=== PATIENT | male | born 1945 | race Caucasian/White ===

== ENCOUNTER → 2022-06-05 14:21 | Outpatient (CLI) | payer MEDICARE, SELFPAY ==
--- NOTE | ~2022-06-05 | XR_ITS ---
XR lumbar spine 2-3V DATE: 06/05/2022 14:40 INDICATION: Right hip pain TECHNIQUE: AP, lateral, coned lateral lumbosacral views COMPARISON: None FINDINGS: There is osteopenia. There is prominent degenerative disc disease at T11-12 and T12-L1. Moderately severe degenerative disc disease and mild retrolisthesis at L1-2. Severe degenerative disc disease and retrolisthesis at L2-3. Mild degenerative disc disease at L3-4 with mild retrolisthesis, moderate degenerative disc disease a t L4-5. There is degenerative change at the apophyseal joints of the lower lumbar and lower cervical area wit h grade 1 anterolisthesis at L4-5. L5-S1 interspace is well preserved. Included lower thoracic and lumbar pedicles are intact. No fracture or bone destruction is evident. The sacroiliac joints are intact. Prominent abdominal aortic and common iliac arterial calcifications. IMPRESSION: Prominent degenerative disc disease of the lower thoracic and lumbar spine, with associat ed retrolisthesis at L1-L2 3 and L3-4 Reviewed, dictated and finalized at location A. IMPRESSION: Prominent degenerative disc disease of the lower thoracic and lumba r spine, with associated retrolisthesis at L1-L2 3 and L3-4
--- NOTE | ~2022-06-05 | XR_ITS ---
XR hip RT min 2V DATE: 06/05/2022 14:40 INDICATION: Right hip and low back pain. No injury. TECHNIQUE: AP and lateral views COMPARISON: None FINDINGS: No fracture or dislocation, avascular necrosis or bone destruction. Right hip joint space a ppears relatively preserved. Pubic symphysis and sacral iliac joints are intact. IMPRESSION: No significant abnormality of right hip Reviewed, dictated and finalized at location A.
== END ==
PROVIDERS: PCP Family Medicine; Visit Provider Physician Assistant
DX: M25.551 Pain in right hip (principal); M51.36 Other intervertebral disc degeneration, lumbar region; M51.34 Other intervertebral disc degeneration, thoracic region
CPT/HCPCS: 72100; 73502

== ENCOUNTER 2022-08-12 11:00 | Outpatient (RCR) | payer MEDICARE, SELFPAY ==
--- NOTE | 2022-07-14 13:09 | PTOPEVAL1 ---
Assessment and note entered by Jose A Gonsalez, PT Evaluation Information Assessment Status Evaluation Diagnosis Sciatica R side Onset gradual Subjective Information Patient reports that he has developed R hip pain which he states will be worked out after he warms up and moves around in the morning. Patient did X -rays of the hip and back and according to the patient the problem is from his back not the hip. Patient reports increased pain with prolonged sitting or inactivity Reported Pain Level Pain Score 4: Self Report Assessment PT Clinical Summary Puma is a 77 year old male coming into the clinic today with a diagnosis with R sided sciatica going down to his R hip. He reports he feels it after waking up in the morning or prolonged sitting. He also reports some issues with stairs and sit to stands. The patient does use topical CBD oil and over the counter supplements to help with the pain. Patient presents with weak core and hip abductors along with tight hamstrings and quads. Physical therapy could benefit the patient with strengthening of the core and glute med along with help stretching the hamstrings and quads along with education on body mechanics with stair climbing and sit to stands. If pain is increased will also work with modalities and manual therapy Plan of Care Interventions Electrical Stimulation,Gait Training,Hot Pack/Cold Pack,Manual Therapy,Mechanical Traction,Neuro Re- education,Patient/Caregiver Education,Therapeutic Activities,Therapeutic Exercise,Ultrasound PT Services Indicated Yes Treatment Frequency and 1x/wk for 4 weeks Duration These treatments will address the objective and functional deficits as defined above. The patient will be advanced safely and appropriately in order for the patient to progress towards his/her prior level of function. Additional exercises will be introduced and as well as a comprehensive home exercise program upon discharge, if needed, ?to ensure carryover of functional gains achieved in the clinic. This treatment plan has been reviewed and agreement upon by the patient.
--- NOTE | 2022-07-29 16:08 | PCPTNOTE ---
Patient called & cancelled scheduled appointment this date due to time was messed up from daylight saving time
--- NOTE | 2022-08-12 14:39 | PTOPDC ---
Assessment and note entered by Jose A Gonsalez, PT Evaluation Information Assessment Status Discharge Diagnosis Sciatica R side Onset gradual Subjective Information The patient reports he is feeling much better. He is sore today, but her reports that is his own fault as he pressure washed 2 sides of his house. He reports he does his exercises though not everyday and can really feel a difference when he does do his stretches. He reports he does not always need to use his CBD oil or BC over the counter pain medication. Patient feels okay with discharge from therapy. Reported Pain Level Pain Score 3: Self Report Additional Pain Score Comments had no pain before pressure washing his home. Assessment PT Clinical Summary Puma has been coming to physical therapy since July 14 for 4 appts. He has met all goals besides his hamstring length. Patient reports he knows what he needs to do with his exercises to stay loose and be in better alignment. He knows that when he overdoes it he will need to use his CBD topical oil and his over the counter pain meds , but it is manageable and much better day to day on average. Plan of Care PT Services Indicated No Treatment Frequency and discharged from skilled physical therapy Duration
== END 2022-08-13 10:43 | disposition home or self-care (01) ==
LOC: ANHPT 11:00
PROVIDERS: PCP Family Medicine; Visit Provider Family Medicine
DX: M54.30 Sciatica, unspecified side (principal)
CPT/HCPCS: 97110; 97140; 97161; 97530; 99199

== ENCOUNTER 2022-09-18 08:25 | Outpatient (CLI) | payer MEDICARE, SELFPAY ==
--- NOTE | ~2022-09-18 | US_ITS ---
Ultrasound of the Abdominal Aorta INDICATION: Cardiovascular disorder, aortic aneurysm TECHNIQUE: Grayscale, color Doppler, and pulsed Doppler images of the aorta and common iliac arteries were obtained. COMPARISON: None. FINDINGS: Maximum vascular dimensions are as follows: Proximal aorta: 2.8 cm Mid aorta: 2.2 cm Distal aorta: 2.3 cm Right common iliac artery: 1.5 cm Left common iliac artery: 1.4 cm There is no evidence of abdominal aortic aneurysm. IMPRESSION: No abdominal aortic aneurysm. Reviewed, dictated and finalized at location M. ETICS COUNTER MANAGER
== END 2022-09-18 08:26 | disposition home or self-care (01) ==
PROVIDERS: PCP Family Medicine; Visit Provider Family Medicine
DX: Z13.6 Encounter for screening for cardiovascular disorders (principal)
CPT/HCPCS: 76706

== ENCOUNTER 2023-06-09 10:34 | Emergency (ER) | payer MEDICARE, SELFPAY ==
--- NOTE | ~2023-06-09 | XR_ITS ---
AP and lateral views of the right tibia/fibula Clinical History: Injury Findings: No acute fracture or dislocation is seen. Osseous alignment is anatomic. Joint spaces are p reserved without significant erosive or degenerative change. Mild diffuse subcutaneous soft tissue ed jignesh noted. Impression: Mild diffuse subcutaneous soft tissue edema, nonspecific. No fracture or dislocation. Reviewed, dictated and finalized at location . Impression: Mild diffuse subcutaneous soft tissue edema, nonspecific. No fracture or dislocation.
[2023-06-09 10:50] VITALS: BP 139/72; PULSE 70; RESP 16; TEMP 36.9; O2SAT 98
[2023-06-09] MEDS: TETANUS,DIPHTHERIA,AC PERTUSSIS ADULT (0.5 ML) BOOSTRIX IM (12:38)
--- NOTE | 2023-06-09 13:12 | ED.LOWEXIN ---
HPI - Extremity Injury (Lower) General Chief Complaint: Extremity Injury, Lower Stated Complaint: leg injury Time Seen by Provider: 06/09/23 12:05 Source: patient and RN notes reviewed Mode of arrival: ambulatory Limitations: no limitations History of Present Illness HPI Narrative: This is an 78 year old male who presents for evaluation of right lower extremity wound. He states that on Thursday he accidentally slipped hitting right anterior lower leg on a rock. He has had a wound to his leg that he has been treating. HE reports he started noticing bruising around his wound on Thursday and Thursday. He reports he noticed bruising moved down to his toes so he called his PCP. His PCP was was unavailable to he came to ER for wound evaluation and to get tetanus shot. He denies having knee pain or injury. He denies ankle or foot pain. He has minimal pain around his wound. He denies dizziness, chest pain, shortness of breath. He takes eliquis for history of afib. He denies hitting his head. He denies calf pain. Related Data Home Medications Medication Instructions Recorded Confirmed cholecalciferol (vitamin D3) 25 1,000 unit PO DAILY 08/25/19 03/03/23 mcg (1,000 unit) capsule vitamin E (dl, acetate) 180 mg 400 unit PO DAILY 08/25/19 03/03/23 (400 unit) capsule Allergies Allergy/AdvReac Type Severity Reaction Status Date / Time No Known Allergies Allergy Verified 03/03/23 09:56 Review of Systems Constitutional: Constitutional: Denies weakness Cardiovascular: Cardiovascular: Denies syncope, Denies rapid heart rate, Denies irregular heart rhythm, Reports leg edema and Denies dyspnea Respiratory: Respiratory: Denies chest congestion, Denies hemoptysis, Denies excessive phlegm production and Denies dyspnea Gastrointestinal: Gastrointestinal: Denies abdominal pain, Denies hematochezia, Denies diarrhea and Denies vomiting Genitourinary: Genitourinary: Denies hematuria, Denies dysuria, Denies penile discharge and Denies testicular pain Musculoskeletal: Musculoskeletal: Denies joint swelling, Denies loss of height and Denies muscle weakness Neurologic: Denies syncope, Denies focal weakness and Denies weakness Hematologic/Lymphatic: Hematologic/Lymphatic: Denies easy bruising PMFSH Past Medical History Medical History Afib CKD (chronic kidney disease), stage III Nummular eczema Surgical History Surgical History H/O cardiac radiofrequency ablation Family History Family History Father Cerebrovascular accident Mother Family history of malignant neoplasm of breast in first degree relative Social History Social History Smoking status: Never smoker Second hand tobacco smoke exposure: No Alcohol intake: current Drinks per week: 8 Substance use: never Substance use type: does not use Living arrangements: with family Occupation/Education: retired Gender identity (if verbalized by the patient): Male Sexual Orientation (if Verbalized by the Patient): Straight or Heterosexual Spiritual care concerns: No Exam Const: General: no acute distress and alert Nutritional Appearance: well nourished Orientation/consciousness: patient oriented x3 HENMT: Head: normal to inspection Face and sinus: normal facial exam Eyes: Pupils: Equal, round and reactive pupils present EOM: EOMs intact bilaterally Chest: Chest palpation & inspection: normal inspection of the chest Resp: Effort & Inspection: normal respiratory effort Skin: Wounds: wounds noted (right anterior lower leg with small puncture wounds, no surrounding erythem) Other: no purulence; there is ecchymosis to ankle and toes, no tenderness Neuro: General: patient oriented x3, moves all extremities and CN's II-XI intact
== END 2023-06-09 13:55 | disposition home or self-care (01) ==
PROVIDERS: Emergency Provider General Practice; PCP Family Medicine
DX: S80.11XA Contusion of right lower leg, initial encounter (principal); S81.801A Unspecified open wound, right lower leg, initial encounter; I48.91 Unspecified atrial fibrillation; N18.30 Chronic kidney disease, stage 3 unspecified; Z23 Encounter for immunization; W18.09XA Striking against other object with subsequent fall, initial encounter
CPT/HCPCS: 73590; 90471; 90715; 99283

== ENCOUNTER 2023-09-08 10:32 | Outpatient (CLI) | payer MEDICARE, SELFPAY ==
--- NOTE | ~2023-09-08 | XR_ITS ---
EXAMINATION: XR tibia fibula RT 2V INDICATION: Two views of the right tibia and fibula are obtained on four radiographs. TECHNIQUE: Right leg pain COMPARISON: 06/08/2023 FINDINGS: Bone alignment is normal. There is no fracture. No acute soft tissue abnormality is identif ied. Calcified atherosclerosis is noted. There is mild osteoarthritis of the knee. IMPRESSION: 1. No acute osseous abnormality. Reviewed, dictated and finalized at location L. ET ADJUSTER
== END 2023-09-08 10:33 | disposition home or self-care (01) ==
PROVIDERS: PCP Family Medicine; Visit Provider Family Medicine
DX: M79.604 Pain in right leg (principal)
CPT/HCPCS: 73590

== ENCOUNTER 2024-03-22 13:40 | Outpatient (CLI) | payer MEDICARE, SELFPAY ==
--- NOTE | ~2024-03-22 | CT_ITS ---
EXAMINATION: CT abdomen pelvis wo con DATE: 03/22/2024 14:09 INDICATION: Stage III chronic kidney disease. TECHNIQUE: Computed tomography (CT) of the abdomen and pelvis was performed without intravenous contr ast. Automated exposure control and iterative reconstruction technique were employed. The dose-length product was 1132.51 mGy-cm. COMPARISON: None FINDINGS: Mild scattered discoid atelectasis in the bilateral lower lungs. Heart size is normal. Atheroscleroti c coronary artery calcifications. Aortic valve calcification. No pericardial or pleural effusion. Rafi dder, gallbladder, spleen, pancreas, bilateral adrenal glands and right kidney are normal. At the lef t kidney there are 2.8 and 1.7 simple fluid attenuation renal cysts and a 5 mm hyperdense proteinaceo us/hemorrhagic cyst. There is an additional 1.5 cm soft tissue density exophytic lesion at the lower pole of the left kidney most likely proteinaceous/hemorrhagic cyst although solid neoplasm cannot be excluded. Bladder is normal. Moderate-sized fat-containing left inguinal hernia. Bowels including the appendix are normal. There a few small smooth nodular soft tissue densities at the posterior aspect of the right perirenal fat and along the anterior margin of the posterior right 10th and 11th ribs, t he largest measuring 2.0 x 1.9 x 1.2 cm. It is unclear this are retroperitoneal or pleural-based at t he posterior sulcus. No free intraperitoneal gas or fluid. No pathologically enlarged abdominal or pe lvic lymphadenopathy. Severe lumbar and moderate to severe lower thoracic spondylosis. 4 mm anterolis thesis L4 on L5. IMPRESSION: 1. Simple and hyperdense prone/hemorrhagic cyst at the left kidney with 1.5 cm indeterminate exophyti c lesion at the lower pole which could represent additional tiny/hemorrhagic cyst or solid renal cell carcinoma. If the patient would be a surgical candidate in the setting of renal cell carcinoma would recommend further evaluation with pre and postcontrast MRI or CT. 2. A few small lobular soft tissue densities the largest measuring 2.0 x 1.9 x 1.2 cm either along th e posterior right perirenal fat or pleural-based at the right posterior sulcus. Differential would in clude malignancy including pleural-based metastases, vascular malformations or benign neoplasm such a s schwannoma or peripheral nerve sheath tumors. Correlate for clinical history of prior right thoraci c malignancy and consider further evaluation with pre and postcontrast MRI. Comparison with any prior outside imaging if available would also be very helpful. Reviewed, dictated and finalized at location B. IMPRESSION: 1. Simple and hyperdense prone/hemorrhagic cyst at the left kidney with 1.5 cm indeterminate exophytic lesion at the lower pole which could represent addition al tiny/hemorrhagic cyst or solid renal cell carcinoma. If the patient would be a surgical candidate in the setting of renal cell carcinoma would recommend fu rther evaluation with pre and postcontrast MRI or CT. 2. A few small lobular soft tissue densities the largest measuring 2.0 x 1.9 x 1.2 cm either along the posterior right perirenal fat or pleural-based at the r ight posterior sulcus. Differential would include malignancy including pleural- based metastases, vascular malformations or benign neoplasm such as schwannoma or peripheral nerve sheath tumors. Correlate for clinical history of prior righ t thoracic malignancy and consider further evaluation with pre and postcontrast MRI. Comparison with any prior outside imaging if available would also be very helpful.
== END 2024-03-22 13:41 | disposition home or self-care (01) ==
PROVIDERS: PCP Family Medicine; Visit Provider Family Medicine
DX: I12.9 Hypertensive chronic kidney disease with stage 1 through stage 4 chronic kidney disease, or unspecified chronic kidney disease (principal); N18.30 Chronic kidney disease, stage 3 unspecified; N13.9 Obstructive and reflux uropathy, unspecified
CPT/HCPCS: 74176

== ENCOUNTER 2024-04-12 14:29 | Outpatient (CLI) | payer MEDICARE, SELFPAY ==
--- NOTE | ~2024-04-12 | MR_ITS ---
EXAMINATION: MR abdomen wo/w con DATE: 04/12/2024 15:31 INDICATION: Stage III chronic kidney disease. TECHNIQUE: Magnetic resonance imaging (MRI) of the abdomen was performed without and with 20 mL Multi essence intravenous contrast. Sequences included coronal T2-weighted SS-FSE, coronal and axial FS 2D-F IESTA, axial STIR FSE, axial T2-weighted SS-FSE, axial T2-weighted FS SS-FSE, axial diffusion-weighte d SE, axial dual-echo T1-weighted FSPGR, and axial and coronal T1-weighted LAVA. Postcontrast axial T 1-weighted LAVA images were obtained in a time course. Postcontrast coronal T1-weighted LAVA images w ere obtained. COMPARISON: CT dated 03/22/2024 FINDINGS: Heart size is normal. No pericardial or pleural effusion. Dependently layering sludge in the otherwis e normal gallbladder. Liver, spleen, pancreas and bilateral adrenal glands are normal. There are few bilateral T2 hyperintense nonenhancing renal cysts the largest on the left measuring 2.8 cm. There ar e also couple T1 hyperintense, T2 hypointense nonenhancing complex proteinaceous/hemorrhagic cysts in the left kidney corresponding to the lesions of concern on prior CT. No enhancing solid renal neopla sms. Again seen are couple small nodular lesions along the fascial plane surrounding the right perire nal fat the largest measuring 1.9 x 1.3 cm which are T2 hyperintense, T1 isointense and without evide nt enhancement on postcontrast imaging which favors a complex cystic lesion. No pathologically enlarg ed abdominal or pelvic lymphadenopathy. Visualized portions of the bowels are unremarkable. Moderate thoracic and severe lumbar spondylosis with some fibrofatty degenerative endplate changes. No patholo gic marrow replacing process. IMPRESSION: 1. Multiple bilateral nonenhancing renal cysts including complex hemorrhagic/proteinaceous cysts in t he left kidney which account for the increased density on prior CT. 2. No evident enhancement associated with a couple small nodular T2 hyperintense lesions on the trans plant the posterior pararenal fat which would also favor complex cystic lesions or potentially a very slowly filling vascular malformation. No evident solid enhancing neoplastic tissue. Reviewed, dictated and finalized at location A. IMPRESSION: 1. Multiple bilateral nonenhancing renal cysts including complex hemorrhagic/pr oteinaceous cysts in the left kidney which account for the increased density on prior CT. 2. No evident enhancement associated with a couple small nodular T2 hyperintens e lesions on the transplant the posterior pararenal fat which would also favor complex cystic lesions or potentially a very slowly filling vascular malformati on. No evident solid enhancing neoplastic tissue.
== END 2024-04-12 14:30 | disposition home or self-care (01) ==
PROVIDERS: PCP Family Medicine; Visit Provider Family Medicine
DX: N28.1 Cyst of kidney, acquired (principal)
CPT/HCPCS: 74183; A9577

== ENCOUNTER 2025-02-07 16:16 | Outpatient (CLI) | payer MEDICARE, SELFPAY ==
--- NOTE | ~2025-02-07 | XR_ITS ---
EXAM: [id number] DATE: 02/07/2025 16:38 HISTORY: M25.562 - Pain in left knee . COMPARISON: None available. FINDINGS: Normal mineralization. No fracture or dislocation. No lytic or blastic lesion. Moderate me dial joint space narrowing. Loss of valgus alignment. Mild tricompartmental osteophytosis. No erosion or periosteal change. Moderate volume joint fluid. Scattered vascular calcifications. IMPRESSION: Tricompartmental left knee osteoarthritis, moderate in the medial compartment. Moderate v olume joint effusion. Reviewed, dictated and finalized at location K. IMPRESSION: Tricompartmental left knee osteoarthritis, moderate in the medial c ompartment. Moderate volume joint effusion.
== END 2025-02-07 16:17 | disposition home or self-care (01) ==
LOC: MICIMG 16:17
PROVIDERS: PCP Family Medicine; Visit Provider Family Medicine
DX: M17.12 Unilateral primary osteoarthritis, left knee (principal); M25.462 Effusion, left knee
CPT/HCPCS: 73560

== ENCOUNTER 2025-03-13 08:49 | Outpatient (CLI) | payer MEDICARE, SELFPAY ==
--- NOTE | ~2025-03-13 | MR_ITS ---
EXAMINATION: MR knee LT wo con DATE: 03/13/2025 09:38 INDICATION: Left knee pain post twisting injury 5 weeks prior TECHNIQUE: Magnetic resonance imaging (MRI) of the left knee was performed without intravenous contra st. Sequences included coronal PD-weighted FSE, coronal PD-weighted FS FSE, sagittal T2-weighted FSE , sagittal PD-weighted FS FSE and axial PD weighted fat saturated FSE. COMPARISON: None. FINDINGS: Medial compartment: There is medial extrusion of the medial meniscal body with complex tear which includes and irregular radial tear plane at the lateral side of the posterior horn and longitudinal horizontal tear plane ex tending medially in the posterior horn and posterior body. Extensive chondral ulceration along the we ightbearing medial femoral condyle which appears full/near full-thickness along a small regions of th e interspaces central weightbearing medial femoral condyle. Slightly additional partial-thickness cho ndral ulceration involving greater than 50% the cartilage thickness at the medial tibial plateau. Lateral compartment: Longitudinal horizontal tear extending to the intra-articular surface along the inner third of the sancho dy and posterior horn of the lateral meniscus. Partial-thickness chondral ulceration and deep fissuri ng with mild underlying subarticular edema-like signal change at the posterior medial aspect of the l ateral tibial plateau. Remaining cartilage the lateral compartment appears relatively preserved. Patellofemoral compartment: Deep chondral fissuring with small foci of mild underlying edema-like signal change at the patellar a pical ridge and medial facet. Shallow chondral fissuring at the inferior aspect of the medial trochle a. Ligaments and tendons: Anterior cruciate ligament is normal. There is thickening and mild amorphous increased signal at the posterior vertical component of the posterior cruciate ligament suspicious for at least partial thick ness tear.. The medial collateral ligament and fibular collateral ligament complex are normal. The ex tensor mechanism is normal. The visualized medial and lateral hamstring tendons as well as the ilioti bial band are normal. Fluid: Moderate-sized joint effusion and mild sclerosis at the suprapatellar pouch. Trace amount fluid in th e very small Sanchez's cyst. Nonspecific subcutaneous edema about the knee and additional soft tissue e kristen deeper in the popliteal fossa. Additional small amount of fluid and synovitis in the popliteal r ecess. No loose osteochondral bodies identified. Osseous/other: There is prominent marrow edema straightening small low signal intensity subarticular likely fracture line along the anterior weightbearing medial femoral condyle. There is additional marrow edema surro unding a more regular low signal intensity fracture line at the posterior medial aspect of the medial tibial plateau. Couple low signal intensity bone islands at the posterior aspect of the medial femor al condyle. No pathologic marrow replacing process. IMPRESSION: 1. Medial and lateral meniscal tears. 2. At least partial tear of the posterior cruciate ligament. 3. Nondisplaced subarticular fracture lines at the anterior weightbearing medial femoral condyle and at the posterior medial aspect of the medial tibial plateau. 4. Tricompartmental osteoarthritis, moderate severity with high-grade chondromalacia in the medial co mpartment and mild with additional smaller regions of high-grade chondral malacia the lateral and pat ellofemoral compartments. 5. Likely reactive moderate sized left knee joint effusion and prominent surrounding subcutaneous kirk ma. Reviewed, dictated and finalized at location A. IMPRESSION: 1. Medial and lateral meniscal tears. 2. At least partial tear of the posterior cruciate ligament. 3. Nondisplaced subarticular fracture lines at the anterior weightbearing media l femoral condyle and at the posterior medial aspect of the medial tibial plate au. 4. Tricompartmental osteoarthritis, moderate severity with high-grade chondroma lacia in the medial compartment and mild with additional smaller regions of hig h-grade chondral malacia the lateral and patellofemoral compartments. 5. Likely reactive moderate sized left knee joint effusion and prominent surrou nding subcutaneous edema.
== END 2025-03-13 08:50 | disposition home or self-care (01) ==
PROVIDERS: PCP Family Medicine; Visit Provider Orthopaedic Surgery
DX: M17.12 Unilateral primary osteoarthritis, left knee (principal); M25.462 Effusion, left knee; S83.282A Other tear of lateral meniscus, current injury, left knee, initial encounter; S83.242A Other tear of medial meniscus, current injury, left knee, initial encounter; S83.522A Sprain of posterior cruciate ligament of left knee, initial encounter; X58.XXXA Exposure to other specified factors, initial encounter
CPT/HCPCS: 73721

== ENCOUNTER 2025-04-19 12:12 | Outpatient (CLI) | payer MEDICARE, SELFPAY ==
--- OUTSIDE RECORDS SUMMARY | 2025-04-19 12:19 | XMS_ITS | Referral Summary ---
Author Organization [facility] Address [address] [facility] [place] [address] Care Team Providers Care Auriculotherapist Name Role Phone Thee Mojica MD Primary Care Provider Jax Mora MD Unavailable Encounters Date Type Department Care Team Description 01/18/2025 2:30 PM CDT Office Visit [facility] Cardiology [address] [place] [address] Jax Mora MD History of atrial flutter (Primary Dx); Status post radiofrequency ablation for arrhythmia; Chronic anticoagulation; Essential hypertension from Last 3 Months Medications metoprolol XL (TOPROL-XL) 100 mg 24 hr tablet Take 1 tablet (100 mg total) by mouth daily 02/17/2018 Active vitamin E 400 unit capsule Take 1 capsule (400 Units total) by mouth daily Active cholecalciferol (VITAMIN D-3) 400 unit capsule Take 2 tablet/capsu le (800 Units total) by mouth daily Active amLODIPine (NORVASC) 5 mg tablet 01/08/2022 Active hydroCHLOROthia zide (HYDRODIURIL) 25 mg tablet Take 1 tablet (25 mg total) by mouth daily 04/10/2024 Active losartan (COZAAR) 100 mg tablet Take 1 tablet (100 mg total) by mouth daily 04/10/2024 Active Eliquis 5 mg tablet TAKE 1 TABLET BY MOUTH TWICE DAILY 180 tablet 3 09/27/2024 Active Active Problems Problem Noted Date Diagnosed Date Atrial flutter with controlled response 05/15/20 20 Overview (05/15/2020): Added automatically from request for surgery [id number] 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 Social History Tobacco Use Types Packs/Day Years Used Date Smoking Tobacco: Never Smokeless Tobacco: Never Alcohol Use Standard Drinks/Week Comments Yes 6 (1 standard drink = 0.6 oz pur e alcohol) per week Sex and Gender Information Value Date Recorded Sex Assigned at Not on file Legal Sex Male 2:39 PM CDT Gender Identity Male 03/07/2020 7:08 PM CDT Sexual Orientation Bisexual 03/07/2020 7: 08 PM CDT Last Filed Vital Signs Vital Sign Reading Time Taken Comments Blood Pressure 124/62 01/18/2025 2:28 PM CDT Pulse 73 01/18/2025 2:28 PM CDT Temperature 36.7 C (98.1 F) 05/29/2020 4:47 PM CDT Respiratory Rate 18 05/29/2020 7:00 PM CDT Oxygen Saturation 98% 01/18/2025 2:28 PM CDT Inhaled Oxygen Concentration - - Weight 112.5 kg (248 lb) 01/18/2025 2:28 PM CDT Height 177.8 cm (5' 10) 01/18/2025 2:28 PM CDT Body Mass Index 35.58 01/18/2025 2:28 PM CDT Plan of Treatment Not on file Medical Devices Implanted Type Area Sales Exhibitor Device Identifier Shelf Expiration Date Model / Serial / Lot [employer] [id number] Vascade 6/7fr Bioabsorbable Vascular System Compression Collagen - [id number] - [id number] Implanted:Qty: 1 on 05/29/2020 by Yonathan Mo MD at [facility] Collagen [employer] 02/26/2022 700-580I-0 [id number] / [id number] / [id number] [employer] [id number] Vascade 6/7fr Bioabsorbable Vascular System Compression Collagen - [id number] - [id number] Implanted:Qty: 1 on 05/29/2020 by Yonathan Mo MD at [facility] Collagen [employer] 02/26/2022 700-580I-0 5U / [id number] / [id number] [employer] [id number] System 6-12fr Mvp Venous Closure Vascade - [id number] - [id number] Implanted:Qty: 1 on 05/29/2020 by Yonathan Mo MD at [facility] Collagen [employer] 03/27/2022 [id number] / [id number] / [id number] Insurance [facility] [place] [address] [facility] MEDICARE ADVANTAGE [facility] MEDICARE ADVANTAGE Care Teams Auriculotherapist Relationship Specialty Start Date End Date Thee Mojica MD [address] [place] [address] PCP - General 02/08/18 Jax Mora MD [address], [address] [id number] Consulting Physician Cardiology 05/29/20
--- OUTSIDE RECORDS SUMMARY | 2025-04-19 12:19 | XMS_ITS | Clinical Summary ---
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 Encounters Date Type Department Care Team Description 01/18/2025 2:30 PM CDT Office Visit [facility] Cardiology [address] [place] [address] Jax Mora MD History of atrial flutter (Primary Dx); Status post radiofrequency ablation for arrhythmia; Chronic anticoagulation; Essential hypertension from Last 3 Months Surgical History Surgery Date Site/Laterality Comments COLONOSCOPY Medical History Medical History Date Comments Hypertension Anal condyloma Family History Medical History Relation Name Comments Hypertension Father malgorzata ajmes Stroke Father malgorzata james Breast cancer Mother sera james Family hist ory of malignant neoplasm of breast - (Added by TW Conv) Cancer Mother sera james Relation Name Status Comments Father malgorzata james Mother sera james Social History Tobacco Use Types Packs/Day Years [...] Orientation Bisexual 03/07/2020 7: 08 PM CDT Obstetrics History Last Filed Vital Signs Vital Sign Reading [...] 01/18/2025 2:28 PM CDT Plan of Treatment Health Maintenance Due Date Last Done Comments Depression Screening 1943 Fall Risk Assessment 1945 DTaP/Tdap/Td Vaccine (1 - Tdap) 1954 Hepatitis B Screening 1961 Well Visit 65+ 02/25/2008 Zoster Vaccine (2 of 3) 05/17/2017 03/22/2017 Pneumococcal vaccine 65+ (2 of 2 - PPSV23) 03/16/2018 03/16/2017 Influenza Vaccine (#1) 2025 4, 07/12/2019, 06/28/2018, Additional history exists Medical Devices Implanted Type Area Software Development Test Engineer Device Identifier Shelf Expiration Date Model / Serial / Lot [employer] [id number] Vascade 6/7fr Bioabsorbable Vascular System Compression Collagen - [id number] - [id number] Implanted:Qty: 1 on 05/29/2020 by Yonathan Mo MD at [facility] Collagen [employer] 02/26/2022 700-580I-0 5U / [id number] / [id number] [employer] [id number] Vascade 6/7fr Bioabsorbable Vascular System Compression Collagen - [id number] - [id number] Implanted:Qty: 1 on 05/29/2020 by Yonathan Mo MD at [facility] Collagen [employer] 02/26/2022 700-580I-0 5U / [id number] / [id number] [employer] [id number] System 6-12fr Mvp Venous Closure Vascade - [id number] - [id number] Implanted:Qty: 1 on 05/29/2020 by Yonathan Mo MD at [facility] Collagen [employer] 03/27/2022 [id number]-[id number] 0U / [id number] / [id number] Insurance [facility] MEDIC[facility] Address: [address] [address] [place] [address] [facility] MEDICARE ADVANTAGE [facility] Address: [address] [place] [address] [facility] MEDICARE ADVANTAGE [facility] Address: [address] [place] [id number] Care Teams Political Scientist Relationship Specialty Start Date End Date Thee Mojica MD [address] [facility] [address] [place] [address] PCP - General 02/08/18 Jax Mora MD [address] [facility] [address], [address] [place] [address] Consulting Physician Cardiology 05/29/20
--- OUTSIDE RECORDS SUMMARY | 2025-04-19 12:19 | XMS_ITS | Encounter Summary ---
Author Organization [facility] Healthcare Address [address] [place] [address] Care Team Providers Care Surveyor Helper Rod Name Role Phone Thee Mojica MD Primary Care Provider Jax Mora MD Unavailable Encounter Details Date Type Department Care Team (Late st Contact Info) Description 03/11/2024 Orders Only [facility] Health Information Management [address] [place] [address] Scanning, Provider Social History Tobacco Use Types Packs/Day Years [...] Orientation Bisexual 03/07/2020 7: 08 PM CDT documented as of this encounter Plan of Treatment Not on file documented as of this encounter Procedures Procedure Name Priority Date/Time Associated Diagnosis Comments SCAN - LABS 03/11/2024 documented in this encounter Results * SCAN - LABS (03/11/2024) us Provider Scanning Final Result documented in this encounter Visit Diagnoses Not on filedocumented in this encounter Care Teams Surveyor Helper Rod Relationship Specialty Start Date End Date Thee Mojica MD [address] [place] [address] PCP - General 02/08/18 Jax Mora MD [address] [place] [address] Consulting Physician Cardiology 05/29/20 documented as of this encounter
--- OUTSIDE RECORDS SUMMARY | 2025-04-19 12:19 | XMS_ITS | Clinical Summary ---
Author Organization [facility] Address [address] [place] [address] Care Team Providers Care Director Of Conservation Name Role Phone Unavailable Primary Care Provider Unavailabl e Social History Tobacco Use Types Packs/Day Years Used Date Smoking Tobacco: Never Assessed Sex and Gender Information Value Date Recorded Sex Assigned at Not on file Legal Sex Male 8:01 PM CDT Gender Identity Not on file Sexual Orientation Not on file Plan of Treatment Health Maintenance Due Date Last Done Comments DTaP, Tdap and Td Vaccines ( 1 - Tdap) 1962 Pneumococcal Vaccine: 50+ Ye ars (1 of 1 - PCV) 1993 Zoster Vaccines (1 of 2) 1993 RSV Immunization or 60+ Years (1 - 1-dose 75+ series) 2018 COVID-19 Vaccine ( - 2023-2 5 season) 2024 Meningococcal B Vaccine Aged Out No l onger eligible based on patient's age to complete this topic Meningococcal Vaccine Aged Out No ollie rupesh eligible based on patient's age to complete this topic RSV Immunizations Under 20 Months Aged Out No longer eligible based on patient's age to complete this topic
--- NOTE | 2025-04-19 12:50 | ECG_ITS ---
Test Date: 2025-04-19 13:02:19 Measurements Intervals [place] Rate: 65 P: -37 AK: 186 QRS: -18 QRSD: 102 T: 4 QT: 387 QTc: 403 Interpretive Statements SINUS RHYTHM VOLTAGE CRITERIA FOR LVH Electronically Signed On 04-19-2025 13:11:29 CDT by Jax Mora D.O
[2025-04-19 13:25] LABS: INR 1.1; Prothrombin Time 14.5 Seconds (11.1-14.7)
[2025-04-19 13:26] LABS: Partial Thromboplastin Time 47.5 Seconds (22.3-36.8)
== END 2025-04-19 12:13 | disposition home or self-care (01) ==
LOC: ANHSURGERY 12:17
PROVIDERS: Anesthesiology; PCP Family Medicine; Visit Provider Orthopaedic Surgery
DX: I48.92 Unspecified atrial flutter (principal); I48.91 Unspecified atrial fibrillation; I12.9 Hypertensive chronic kidney disease with stage 1 through stage 4 chronic kidney disease, or unspecified chronic kidney disease; N18.32 Chronic kidney disease, stage 3b
CPT/HCPCS: 36415; 85610; 85730; 93005

== ENCOUNTER 2025-04-26 01:47 | Day surgery (SDC) | payer MEDICARE, SELFPAY ==
[2025-04-18 09:29] VITALS: BMI 34.7
--- NOTE | 2025-04-18 09:45 | PC.NURSE ---
Report to the Outpatient Waiting Room, entrance under the green pavilion located off [facility], at time __0700am on date __04/26/25 . Planned Procedure Time: __0900am Time changes happen often and if your time is changed the preop area will call you the afternoon before. - You and your visitor will be asked to self-screen and do not enter if you have any COVID symptoms. Please call surgeon if you need to reschedule. - A mask is optional within the hospital at this time. Patients may have clear liquids (water, carbonated beverages, clear teas, apple juice) until 3 hours prior to surgery with a maximum of 20 ounces. - No food from midnight until time of surgery and no smoking, or chewing tobacco (or any form of nicotine). No chewing gum, candy or mints. (0600am) Take only the following medications with a SIP of water on the morning of surgery: __Amlodipine and Metoprolol, Tylenol as needed DO NOT STOP ANY OF YOUR OTHER PRESCRIPTION MEDICATIONS PRIOR TO SURGERY EXCEPT THE FOLLOWING Hold all vitamins and supplements for 3 days per anesthesiologist. Date of last dose is 04/22/25. Medications to discontinue per physician Dr. Isaac Marlow/Abby to notify pt w instructions Date to take last dose__Pending . Please no make-up, nail icelandic, hairspray, perfume, deodorant, or body powder the day of surgery.? No jewelry (including any body piercings) or valuables the day of surgery, leave them at home.? Please take a shower or bath the night before, or the morning of, surgery with an antibacterial soap.? Wear comfortable, loose fitting clothing.? Bring walker - Jewelry must be removed prior to entering the operating room.? Rings and piercings that are not removed may be cut off. - The hospital will not accept responsibility for valuables.? - Please leave all valuables, including medications, at home the day of surgery. If you are going home after surgery, a licensed fast food delivery driver must drive you home.? - NO public transportation without another adult if you receive anesthesia. - We recommend that an adult stay with you for 24 hours following discharge. - We also recommend that you do not drive, make important decision, drink alcoholic beverages, or take any drugs that were not prescribed by your health care provider for at least 24 hours after your discharge time. Follow any additional instructions given to you from your surgeon. Telephone instructions given to ____Patient and asked if any additional questions and then verbalized understanding. Patient advised to call surgeon office or pre surgery nurse liaison [phone] if any additional questions.
--- NOTE | 2025-04-25 07:16 | P.HP_ITS ---
H&P: HPI History of Present Illness Date/Time: 04/25/25 07:16 Chief Complaint: Patient has knee pain left. He has mechanical catching and locking in the left knee and pain with manipulation. He has failed conservative treatment and would like to consider arthroscopic intervention at this time. Review of Systems Musculoskeletal: Musculoskeletal: Reports arthralgias, Reports joint swelling and Reports stiffness Neurologic: Reports abnormal gait [facility] Past Medical History Medical History Diastolic dysfunction Afib CKD (chronic kidney disease), stage III Nummular eczema Surgical History Surgical History H/O cardiac radiofrequency ablation Family History Family History Father Cerebrovascular accident Mother Family history of malignant neoplasm of breast in first degree relative Social History Social History Smoking status: Never smoker Second hand tobacco smoke exposure: No Alcohol intake: current Drinks per week: 7 Substance use: never Substance use type: does not use Do You Feel Safe in your Home?: Yes Lack of Transportation: No Lack of Food: Never True Current Housing: I Have Housing Concerned About Future Housing: No Difficulty Paying Gas/Electric Bills: No Difficulty Paying for Meds: No Currently Unemployed: No Education: Associate Degree Difficulty w/ Childcare or Family Care: No Living arrangements: alone Occupation/Education: retired Gender identity (if verbalized by the patient): Male Sexual Orientation (if Verbalized by the Patient): Straight or Heterosexual Spiritual care concerns: No Meds Home Medications and Allergies Home Medications ?Medication ?Instructions ?Recorded ?Confirmed ?Type cholecalciferol (vitamin D3) 25 1,000 unit PO DAILY 08/25/19 04/18/25 History mcg (1,000 unit) capsule vitamin E (dl, acetate) 180 mg 400 unit PO DAILY 08/25/19 04/18/25 History (400 unit) capsule apixaban 5 mg tablet (Eliquis) See Rx Instructions .Route 04/06/23 04/18/25 Rx .COMPLEX #200 tabs amlodipine 5 mg tablet 5 mg PO DAILY #100 tabs 12/19/24 04/18/25 Rx hydrochlorothiazide 25 mg tablet See Rx Instructions .Route 12/19/24 04/18/25 Rx .COMPLEX #100 tabs losartan 100 mg tablet See Rx Instructions .Route 12/19/24 04/18/25 Rx .COMPLEX #100 tabs metoprolol succinate 100 mg See Rx Instructions .Route 12/19/24 04/18/25 Rx tablet,extended release 24 hr .COMPLEX #100 tabs acetaminophen 650 mg 650 mg PO Q8H PRN pain 04/18/25 04/18/25 History tablet,extended release (8 Hour Pain Reliever) Allergies Allergy/AdvReac Type Severity Reaction Status Date / Time No Known Allergies Allergy Verified 04/18/25 09:23 Exam Narrative: On exam he has tenderness palpation over the joint line. He has a positive Gabrielle's and pain to manipulation. Neurologically he is intact. He has mechanical catching and locking with motion. He walks with an antalgic gait. Eyes: General: appearance normal, both eyes and all related structures Neck: Neck: supple Resp: Effort & Inspection: normal respiratory effort Cardio: Rate: regular rate Rhythm: regular rhythm Radiology Reports: Comments: Magnetic Resonance Report Signed Patient: Puma Pittman EXAMINATION: MR knee LT wo con DATE: 03/13/2025 09:38 INDICATION: Left knee pain post twisting injury 5 weeks prior TECHNIQUE: Magnetic resonance imaging (MRI) of the left knee was performed without intravenous contrast. Sequences included coronal PD-weighted FSE, coronal PD-weighted FS FSE, sagittal T2-weighted FSE, sagittal PD-weighted FS FSE and axial PD weighted fat saturated FSE. COMPARISON: None. FINDINGS: Medial compartment: There is medial extrusion of the medial meniscal body with complex tear which includes and irregular radial tear plane at the lateral side of the posterior horn and longitudinal horizontal tear plane extending medially in the posterior horn and posterior body. Extensive chondral ulceration along the weightbearing medial femoral condyle which appears full/near full-thickness along a small regions of the interspaces central weightbearing medial femoral condyle. Slightly additional partial-thickness chondral ulceration involving greater than 50% the cartilage thickness at the medial tibial plateau. Lateral compartment: Longitudinal horizontal tear extending to the intra-articular surface along the inner third of the body and posterior horn of the lateral meniscus. Partial- thickness chondral ulceration and deep fissuring with mild underlying subarticular edema-like signal change at the posterior medial aspect of the lateral tibial plateau. Remaining cartilage the lateral compartment appears relatively preserved. Patellofemoral compartment: Deep chondral fissuring with small foci of mild underlying edema-like signal change at the patellar apical ridge and medial facet. Shallow chondral fissuring at the inferior aspect of the medial trochlea. Ligaments and tendons: Anterior cruciate ligament is normal. There is thickening and mild amorphous increased signal at the posterior vertical component of the posterior cruciate ligament suspicious for at least partial thickness tear.. The medial collateral ligament and fibular collateral ligament complex are normal. The extensor mechanism is normal. The visualized medial and lateral hamstring tendons as well as the iliotibial band are normal. Fluid: Moderate-sized joint effusion and mild sclerosis at the suprapatellar pouch. Trace amount fluid in the very small Sanchez's cyst. Nonspecific subcutaneous edema about the knee and additional soft tissue edema deeper in the popliteal fossa. Additional small amount of fluid and synovitis in the popliteal recess. No loose osteochondral bodies identified. Osseous/other: There is prominent marrow edema straightening small low signal intensity subarticular likely fracture line along the anterior weightbearing medial femoral condyle. There is additional marrow edema surrounding a more regular low signal intensity fracture line at the posterior medial aspect of the medial tibial plateau. Couple low signal intensity bone islands at the posterior aspect of the medial femoral condyle. No pathologic marrow replacing process. IMPRESSION: 1. Medial and lateral meniscal tears. 2. At least partial tear of the posterio r cruciate ligament. 3. Nondisplaced subarticular fracture li lorena at the anterior weightbearing medial femoral condyle and at the posterior medial aspect of the medial tibial plateau. 4. Tricompartmental osteoarthritis, mode rate severity with high-grade chondromalacia in the medial compartment and mild with additional smaller regions of high-grade chondral malacia the lateral and patellofemoral compartments. 5. Likely reactive moderate sized left k nee joint effusion and prominent surrounding subcutaneous edema. Reviewed, dictated and finalized at location A. Hip X-Ray 09/15/22 Knee X-Ray 02/07/25 Knee MRI 03/13/25 Tibia/Fibula X-Ray 09/08/23 Lumbar Spine X-Ray 06/05/22 Assessment and Plan Assessment and plan (1) Acute lateral meniscus tear of left knee: Code(s): S83.282A - Other tear of lateral meniscus, current injury, left knee, initial encounter Status: Acute Assessment and Plan: Patient has mediolateral meniscal tears left knee. He has failed conservative treatment like to consider arthroscopic intervention. I have discussed this with him at length including the risks, benefits, limitations, and alternatives. Will proceed per his request with arthroscopy of the left knee partial meniscectomies medially laterally, proceed as indicated. (2) Acute medial meniscus tear of left knee: Code(s): S83.242A - Other tear of medial meniscus, current injury, left knee, initial encounter Status: Acute
[2025-04-26] VITALS (8 sets, daily range): BP systolic 157–188; BP diastolic 76–98; PULSE 71–87; RESP 12–20; TEMP 36.6–36.8; O2SAT 97–100
--- OUTSIDE RECORDS SUMMARY | 2025-04-26 01:51 | XMS_ITS | Continuity of Care Document ---
Author Organization [facility] Address [address] [place] [address] Phone Care Team Providers Care Regional Sales Manager Name Role Phone Suhail Butler DO Unavailable Unavailable Advance Directives Directive Yes / No Effective Date File Name No Information Encounters Encounter Description Practice Location Reason(s) For Visit Diagnoses Date Provider Providers Copied on Encounter [facility], [address], [place], [place], [id number], [place] tel:[phone] [facility] No Information Carrie Hubbard. [address] [place], [address], [place]. tel: [phone] Family History Family Member Type Diagnosis Age At Onset No Information Payers Payer name Insurance type Covered alliance party ID Authoriza tion(s) No Information Social History Type Description Quantity Date Captured Comments Sex Male Smoking Status No Information Chief Complaint And Reason For Visit No Information Reason For Referral Reason For Referral No Information History Of Present Illness Encounter Date Complaint History Of Prese nt Illness No Information Functional Status Date Functional Assessmen t No Information Instructions Date Instruction Additional Infor mation No Information Assessments Type Assessment Date No Information Patient Care Teams Name Effective Dates (start - stop) Status Members No Information
--- OUTSIDE RECORDS SUMMARY | 2025-04-26 01:51 | XMS_ITS | Referral Summary ---
Author Organization 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 Anal [...] on file Medical Devices Implanted Type Area Ginger Farmer Device Identifier Shelf Expiration Date Model / Serial / Lot [employer] [id number] Vascade 6/7fr Bioabsorbable Vascular System Compression Collagen - [id number] - [id number] Implanted:Qty: 1 on 05/29/2020 by Yonathan Mo MD at [facility] Collagen [employer] 02/26/2022 700-580I-0 5U / [id number] / [id number] [employer] [id number] Vascade 6/7fr Bioabsorbable Vascular System Compression Collagen - [id number] - [id number] Implanted:Qty: 1 on 05/29/2020 by Yonathan Mo MD at [facility] Collagen [employer] 02/26/2022 700-580I-0 5U / [id number] / [id number] [employer] [id number] System 6-12fr Mvp Venous Closure Vascade - [id number] - [id number] Implanted:Qty: 1 on 05/29/2020 by Yonathan Mo MD at [facility] Collagen [employer] 03/27/2022 800-612C-[id number] [id number] / [id number] / [id number] Insurance [facility] MDCR HMO REF [facility] MEDIC[facility] Address: [address] [phone] [facility] MEDICARE ADVANTAGE [facility] Address: [address] [address] [place] [address] [employer] MEDICARE ADVANTAGE [facility] MEDIC[facility] Address: [address] [address] Care Teams Collision Worker Relationship Specialty Start Date End Date Thee Mojica MD [address] [place] [address] PCP - General 02/08/18 Jax Mora MD [address] [place] [address] Consulting Physician Cardiology 05/29/20
--- OUTSIDE RECORDS SUMMARY | 2025-04-26 01:51 | XMS_ITS | Clinical Summary ---
Author Organization [facility] Address [address] [place] [id number] Care Team Providers Care Chain Mortiser Operator Name Role Phone Unavailable Primary Care Provider [...]
--- OUTSIDE RECORDS SUMMARY | 2025-04-26 01:51 | XMS_ITS | Clinical Summary ---
Author Organization 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 Surgical History Surgery Date Site/Laterality Comments COLONOSCOPY Medical History Medical History Date Comments Hypertension Anal condyloma Family History Medical History Relation Name Comments Hypertension Father malgorzata james Stroke Father malgorzata james Breast cancer Mother [...] PPSV23) 03/16/2018 03/16/2017 Influenza Vaccine (#1) 2025 , 07/12/2019, 06/28/2018, Additional history exists Medical Devices Implanted Type Area Engineering Documentation Specialist Device Identifier Shelf Expiration Date Model / Serial / Lot [employer] [id number] Vascade 6/7fr Bioabsorbable Vascular System Compression Collagen - [id number] - [id number] Implanted:Qty: 1 on 05/29/2020 by Ynoathan Mo MD at [facility] Collagen [employer] 02/26/2022 700-580I-0 5U / [id number] / [id number] [employer] [id number] Vascade 6/7fr Bioabsorbable Vascular System Compression Collagen - [id number] - [id number] Implanted:Qty: 1 on 05/29/2020 by Yonathan Mo MD at [facility] Collagen [employer] 02/26/2022 700-580I-0 5U / [id number] / [id number] [employer] [id number] System 6-12fr Mvp Venous Closure Vascade - [id number] - [id number] Implanted:Qty: 1 on 05/29/2020 by Yonathan Mo MD at [facility] Collagen [employer] 03/27/2022 800-612C-1 0U / [id number] / [id number] Insurance [facility] MDCR HMO REF [facility] Address: [address] [address] [facility] MEDICARE ADVANTAGE [facility] MEDIC[facility] Address: [address] [address] [place] [address] [facility] MEDICARE ADVANTAGE [facility] Address: [address] [place], [place] [phone] Care Teams K [employer] School Professional Relationship Specialty Start Date End Date Thee Mojica MD [address] [place] [address] PCP - General 02/08/18 Jax Mora MD [address] [place] [id number] Consulting Physician Cardiology 05/29/20
[2025-04-26] MEDS: KETOROLAC 15 MG/ML VIAL (*BKC) IV PUSH (08:00)
[2025-04-26] MEDS: LACTATED RINGERS 1,000 ML 30 ML IV CONT ×2 (08:00→10:00)
[2025-04-26] MEDS: ACETAMINOPHEN 500 MG TABLET 1000 MG PO (08:00)
[2025-04-26 08:09] LABS: Partial Thromboplastin Time 29.1 Seconds (22.3-36.8)
--- NOTE | 2025-04-26 08:10 | WPDHPUPDATE1 ---
History and Physical Update Update Date/Time: 04/26/25 08:10 History and Physical has been reviewed, including an updated exam of the patient. There are NO changes in the patient's condition. Risks, benefits, and alternatives have been discussed and questions answered. Patient agrees to proceed with procedure. Will proceed with arthroscopy of the left knee with partial meniscectomy and proceed as indicated.
--- NOTE | 2025-04-26 08:19 | WPDANESEPPF ---
Anes - Initial Pre Proc Eval Procedure: Operation Date: 04/26/25 09:00 Proposed Procedures p Left Knee Arthroscopy, Partial Meniscectomy, Proceed As Indicated - Raj Gray MD Date/Time: 04/26/25 08:19 Surgeon: Raj Gray MD Pre Op Diagnosis: left medial meniscus tear Patient Data Age: 80 Gender: M Height: 1.78 m Weight: 110.4 kg Last Vital Signs Temp 36.8 C 04/26/25 08:00 Pulse 87 04/26/25 08:00 Resp 16 04/26/25 08:00 BP 188/93 H 04/26/25 08:00 Pulse Ox 100 04/26/25 08:00 O2 Del Method Room Air 04/26/25 08:00 Allergies Allergy/AdvReac Type Severity Reaction Status Date / Time No Known Allergies Allergy Verified 04/26/25 08:13 Home Medications ?Medication ?Instructions ?Recorded ?Confirmed ?Type cholecalciferol (vitamin D3) 25 1,000 unit PO DAILY 08/25/19 04/26/25 History mcg (1,000 unit) capsule vitamin E (dl, acetate) 180 mg 400 unit PO DAILY 08/25/19 04/26/25 History (400 unit) capsule apixaban 5 mg tablet (Eliquis) See Rx Instructions .Route 04/06/23 04/26/25 Rx .COMPLEX #200 tabs amlodipine 5 mg tablet 5 mg PO DAILY #100 tabs 12/19/24 04/18/25 Rx hydrochlorothiazide 25 mg tablet See Rx Instructions .Route 12/19/24 04/26/25 Rx .COMPLEX #100 tabs losartan 100 mg tablet See Rx Instructions .Route 12/19/24 04/26/25 Rx .COMPLEX #100 tabs metoprolol succinate 100 mg See Rx Instructions .Route 12/19/24 04/26/25 Rx tablet,extended release 24 hr .COMPLEX #100 tabs acetaminophen 650 mg 650 mg PO Q8H PRN pain 04/18/25 04/18/25 History tablet,extended release (8 Hour Pain Reliever) hydrocodone 5 mg-acetaminophen 325 1 tablet PO Q4H PRN pain #30 tabs 04/26/25 Rx mg tablet Laboratory Tests 04/26/25 07:42 APTT 29.1 Seconds (22.3-36.8) Patient hx anesthesia problems: none Family hx anesthesia problems: none Results Review: All pre-operative results and documents have been reviewed as part of the pre-operative evaluation. COUNTS INCLUDE 234 BEDS AT THE [facility] Past Medical History Medical History Diastolic dysfunction Afib CKD (chronic kidney disease), stage III Nummular eczema Surgical History Surgical History H/O cardiac radiofrequency ablation Family History Family History Father Cerebrovascular accident Mother Family history of malignant neoplasm of breast in first degree relative Social History Social History Smoking status: Never smoker Second hand tobacco smoke exposure: No Alcohol intake: current Drinks per week: 7 Substance use: never Substance use type: does not use Do You Feel Safe in your Home?: Yes Lack of Transportation: No Lack of Food: Never True Current Housing: I Have Housing Concerned About Future Housing: No Difficulty Paying Gas/Electric Bills: No Difficulty Paying for Meds: No Currently Unemployed: No Education: Associate Degree Difficulty w/ Childcare or Family Care: No Living arrangements: alone Occupation/Education: retired Gender identity (if verbalized by the patient): Male Sexual Orientation (if Verbalized by the Patient): Straight or Heterosexual Spiritual care concerns: No Anes - Eval Final PreProcedure Day of Procedure 04/26/25 08:19 Patient weight: obese Heart: regular rate and rhythm Lungs: clear to auscultation Airway: Mallampati scale class II Neurological: alert and oriented Last oral intake: >/= 8 hours ASA classification: III Emergent: no Anesthetic plan: proceed Anesthesia type and monitoring: general LMA and standard monitoring Results Review: All pre-operative results and documents have been reviewed as part of the pre-operative evaluation. Informed Consent: The patient's anesthetic plan and its attendant risks and benefits were discussed with the patient/family/POA. Questions were solicited and answers provided to the satisfaction of the patient/family/POA.
[2025-04-26] MEDS: ceFAZolin 2 GM in SODIUM CHLORIDE 0.9% IV 50 ML 100 ML IVPB (08:36)
[2025-04-26] MEDS: LIDO 1%/EPINEPHRINE 1:100,000 20 ML VIAL 10 ML INFILTRATE (09:01)
--- NOTE | 2025-04-26 09:19 | W.PM.PROC2 ---
Procedure Note - Detailed Date of Procedure 04/26/25 Pre-op Diagnosis Left medial and lateral meniscal tears Post-op Diagnosis Same Procedure Performed LEFT knee arthroscopy with partial meniscectomy Surgeon Raj Gray MD Anesthesia General Indications Pain, Locking and Catching Description of Procedure Patient brought to operating room # 7. An anesthetic was administered. The knee was sterilely prepped and draped in the usual manner. Standard portals were used. Superior medial portal was used for the outflow cannula, inferior lateral portal was used for the scope, inferior medial portal was used for the instruments. Arthroscopy was performed, the patellar femoral joint degenerative changes. The medial compartment showed a complex tear. The lateral compartment showed a tear as well. The ACL was intact. Using baskets and zeferino the meniscal tears were trimmed back to a stable base so the nothing further could be pulled into the joint. Any loose or delaminated fragments were gently trimmed to a stable base. He had grade 3 +changes medially this is debrided back to a stable base. At this point the instruments were withdrawn, sutures placed and patient left the operating room in satisfactory condition. Estimated Blood Loss 20 Drains No Packing No Pathology None sent Complications No immediate complications Condition Stable Disposition PACU [facility] Billing Surgery - Charge Forward: Surgery Billing (73162 MMT LMT Scope)
== END 2025-04-26 11:05 | disposition home or self-care (01) ==
PROVIDERS: Anesthesiology; PCP Family Medicine; Visit Provider Orthopaedic Surgery
PROC: (CPT 29870; principal; 2025-04-26 09:00)
DX: M23.332 Other meniscus derangements, other medial meniscus, left knee (principal); M23.362 Other meniscus derangements, other lateral meniscus, left knee; I48.91 Unspecified atrial fibrillation; N18.30 Chronic kidney disease, stage 3 unspecified; Z79.01 Long term (current) use of anticoagulants; E66.9 Obesity, unspecified; Z68.34 Body mass index [BMI] 34.0-34.9, adult
CPT/HCPCS: 29880; 36415; 85730; J0690; A9270; J1885; J2003; J2004; J2405; J2704; J3010; J7120

== ENCOUNTER 2025-07-03 13:30 | Outpatient (RCR) | payer MEDICARE, SELFPAY ==
--- NOTE | 2025-05-25 16:22 | OPREHPOC ---
Outpatient Therapy Plan of Care This is a Multidisciplinary Plan of Care that may contain components documented by all disciplines (PT, OT, and ST.) PT Problem 1 PT Problem #1 Knowledge Deficit PT Goal 1 Goal / Goal Update *independent with HEP Target Visit 10 PT Problem 2 PT Problem #2 Pain PT Goal 1 Goal / Goal Update * pt report pain rating at worst of 3/10 Target Visit 10 PT Problem 3 PT Problem #3 Impaired Range of Motion PT Goal 1 Goal / Goal Update increase L knee ROM to improve transfer and mobility skills sitting active ROM: 1* extension 0' 2* flexion 130' Target Visit 10 PT Problem 4 PT Problem #4 Impaired Functional Mobility PT Goal 1 Goal / Goal Update 1* 2 minute walking test distance of 350' without assistive device 2* up/down 12 steps with one hand railing and alternating step pattern 3* pt report walking/standing tolerance of 2 hours Target Visit 10 PT Problem 5 PT Problem #5 Impaired Strength PT Goal 1 Goal / Goal Update increase strength of L hip and knee, to 4+/5, to improve mobility Target Visit 10
--- NOTE | 2025-05-25 16:22 | PTOPEVAL1 ---
Assessment and note entered by Isabella Licea, PT Evaluation Information Assessment Status Evaluation ICD-10 Condition Codes (PT) Pain in left knee M25.562,Difficulty Walking R26.2 ,Abnormalities of gait and mobility R26.9,Weakness R53.1,Encounter for other orthopedic aftercare Z47.89 Onset 04-26-25 Subjective Information had lateral and medial meniscal tears- L knee arthroscopy on 04-26-25; injury to knee ~ 04-13-25; since surgery, rested and did not do much; did few leg exercises and moved it around; using the cane ; knee is better; is not using the cane in the house , when go out in community- use the cane; hah activity: 3 steps to outside deck; have basement with bilateral hand rails- been going down there; active lifestyle, independent and drives; Reported Pain Level Pain Score 0: Self Report Additional Pain Score Comments pain range in the past week 0-7/10 increase pain: standing/walking 1 hour decrease pain: sit, rest, tylenol PRN have not been using ice sleeping is not disrupted due to knee pain Assessment PT Clinical Summary Puma had L knee arthroscopy on 04-26-25. He is walking with a cane and has started doing some knee exercises on his own. Prior to surgery, he was active and did not use an assistive device. LE functional scale rating of 65% limitation in activity level. With the evaluation: he has decreased L knee ROM: (-5') to 120'; decrease strength of L hip and knee; 2 minute walking test distance of 225' with cane and pain increase to 6/10; 4 steps with single step pattern, using cane and one hand railing; Skilled PT services are indicated for modalities to decrease pain, therapeutic exercises to increase L hip and knee strength and knee ROM, with education to progress HEP, gait training and pain control. Plan of Care Interventions Electrical Stimulation,Gait Training,Hot Pack/Cold Pack,Manual Therapy,Neuro Re-education,Patient/ Caregiver Education,Therapeutic Activities, Therapeutic Exercise,Ultrasound,Other Other Interventions taping PT Services Indicated Yes Treatment Frequency and 1-2x/wk for 10 visits Duration These treatments will address the objective and functional deficits as defined above. The patient will be advanced safely and appropriately in order for the patient to progress towards his/her prior level of function. Additional exercises will be introduced and as well as a comprehensive home exercise program upon discharge, if needed, ?to ensure carryover of functional gains achieved in the clinic. This treatment plan has been reviewed and agreement upon by the patient.
--- NOTE | 2025-06-19 09:30 | PCPTNOTE ---
Cancelled d/t work conflict, PER FRONT OFFICE. AKS
--- NOTE | 2025-07-03 14:16 | OPREHPOC ---
Outpatient Therapy Plan of Care This is a Multidisciplinary Plan of Care that may contain components documented by all disciplines (PT, OT, and ST.) PT Problem 1 PT Problem #1 Knowledge Deficit PT Goal 1 Goal / Goal Update *independent with HEP 07-03-25 d/c goal met Target Visit 10 Progress Met PT Problem 2 PT Problem #2 Pain PT Goal 1 Goal / Goal Update * pt report pain rating at worst of 3/10 07-03-25 d/c goal not met, 4/10 at worst Target Visit 10 Progress Not Met PT Problem 3 PT Problem #3 Impaired Range of Motion PT Goal 1 Goal / Goal Update increase L knee ROM to improve transfer and mobility skills sitting active ROM: 1* extension 0' 2* flexion 130' 07-03-25 d/c goal 1 met; #2 improved to 120' Target Visit 10 Progress Partially Met PT Problem 4 PT Problem #4 Impaired Functional Mobility PT Goal 1 Goal / Goal Update 1* 2 minute walking test distance of 350' without assistive device 2* up/down 12 steps with one hand railing and alternating step pattern 3* pt report walking/standing tolerance of 2 hours 07-03-25 d/c goals 2,3 met; #1 improved to 330' Target Visit 10 Progress Partially Met PT Problem 5 PT Problem #5 Impaired Strength PT Goal 1 Goal / Goal Update increase strength of L hip and knee, to 4+/5, to improve mobility 07-03-25 d/c goal met Target Visit 10 Progress Met
--- NOTE | 2025-07-03 14:16 | PTOPDC ---
Assessment and note entered by Isabella Licea, PT Assessment Status Discharge ICD-10 Condition Codes (PT) Pain in left knee M25.562,Difficulty Walking R26.2 ,Abnormalities of gait and mobility R26.9,Weakness R53.1,Encounter for other orthopedic aftercare Z47.89 Onset 04-26-25 Subjective Information knee is doing better; been doing all the exercises; have been working out in the yard getting ready for fall; is not using the cane inside the house; do use the cane when go out side; have started taking glucosamine pills; kneeling on both knees & going down stairs is giving me some troubles; cannot walk/light run fast enough yet to play with my dog; have fitness center membership, can use the treadmill there and I have a stationary bike at home; ready to finish PT. Reported Pain Level Pain Score Self Report Additional Pain Score Comments pain range in the past week 0-4/10; no longer taking tylenol; decrease pain: rest, ice, elevation increase pain: walking as tolerated, do not have to stop due to knee Assessment PT Clinical Summary Puma has received 9 PT sessions. He has improved in all areas and with today's assessment: pain range of 0-4/10; is no longer taking tylenol or any meds for pain; increased activity--returned to doing outside yard work and all inside tasks; active ROM of L knee in sitting is 0-120', without an increase in pain; gross strength L knee and hip 4+/5; 2 minute walking test distance of 330' without device; on 4 steps with cane and alternate step pattern, independent; he has slight hesitation with descending stairs and full weight on L LE; education completed for HEP and safety with mobility. The goals were partially achieved. Discharge PT services. He is to continue with his HEP, increase walking as tolerated, with use of the cane PRN for a good gait pattern. Plan of Care PT Services Indicated No
== END 2025-07-03 16:33 | disposition home or self-care (01) ==
LOC: ANHPT 13:30
PROVIDERS: PCP Family Medicine; Visit Provider Orthopaedic Surgery
DX: S83.282A Other tear of lateral meniscus, current injury, left knee, initial encounter (principal); S83.242A Other tear of medial meniscus, current injury, left knee, initial encounter; Z98.890 Other specified postprocedural states
CPT/HCPCS: 97110; 97116; 97140; 97161; 97530